=== PATIENT | female | born 1975 | race Caucasian/White ===

== ENCOUNTER 2018-02-26 12:19 | Emergency (ER) | payer MEDICAID | END 2018-02-26 15:38 | disposition home or self-care (01) | LOC: FTE 12:19 | DX: L03.114 Cellulitis of left upper limb (principal); Z79.82 Long term (current) use of aspirin | CPT/HCPCS: 76536; 99284-25 ==

== ENCOUNTER 2018-03-08 10:32 | Inpatient (IN) | payer MEDICAID ==
[2018-03-08 14:39] LABS: ADD MAN DIFF? NO
[2018-03-08 14:41] LABS: WHITE BLOOD COUNT 5.3 10^3/ul (4.8-10.8)
[2018-03-08 14:41] LABS: BASOPHIL # 0.1 10^3/ul (0.0-0.1); BASOPHILS % 0.9 % (0.0-2.0); EOSINOPHILS # 0.2 10^3/ul (0.0-0.5); EOSINOPHILS % 4.3 % (0.0-7.0); HEMATOCRIT 34.8 % (37.0-47.0); HEMOGLOBIN 11.8 g/dl (12.0-16.0); LYMPHOCYTES % 36.9 % (15.0-51.0); MEAN CORPUSCULAR HEMOGLOBIN 30.2 pg (29.0-33.0); MEAN CORPUSCULAR HGB CONC 33.9 g/dl (32.0-37.0); MEAN PLATELET VOLUME 10.7 fl (7.4-10.4); MONOCYTE # 0.5 10^3/ul (0.3-0.9); NEUTROPHIL # 2.6 10^3/ul (1.6-7.5); NEUTROPHILS % 48.5 % (39.0-77.0); PLATELET COUNT 205 10^3/UL (140-415); RED BLOOD COUNT 3.91 10^6/ul (4.20-5.40); RED CELL DISTRIBUTION WIDTH 14.6 % (11.5-14.5)
[2018-03-08 14:57] LABS: LACTIC ACID 1.3 mmol/L (0.5-2.0)
[2018-03-08 14:58] LABS: ALANINE AMINOTRANSFERASE 42 IU/L (13-69); ALBUMIN 4.6 g/dl (3.3-4.9); ALBUMIN/GLOBULIN RATIO 1.58; ALKALINE PHOSPHATASE 60 IU/L (42-121); ANION GAP 16 (8-16); ASPARTATE AMINO TRANSFERASE 28 IU/L (15-46); BILIRUBIN,INDIRECT 0.6 mg/dl (0-1.1); BILIRUBIN,TOTAL 0.6 mg/dl (0.2-1.3); BLOOD UREA NITROGEN 19 mg/dl (7-20); CALCIUM 9.4 mg/dl (8.4-10.2); CARBON DIOXIDE 25 mmol/L (21-31); CHLORIDE 110 mmol/L (97-110); CREATININE 1.37 mg/dl (0.44-1.00); GLUCOSE 99 mg/dl (70-220); POTASSIUM 3.4 mmol/L (3.5-5.1); SODIUM 148 mmol/L (135-144); TOTAL PROTEIN 7.5 g/dl (6.1-8.1)
[2018-03-08 15:11] LABS: INR 0.84; PROTIME 11.6 Sec (11.9-14.9); PT RATIO 0.9
[2018-03-08 15:12] LABS: PARTIAL THROMBOPLASTIN TIME 24.5 Sec (25.0-35.0)
[2018-03-08] MEDS ORDERED: NA PHOSPHATE/BIPHOS 133 ML ENEMA PR (15:30)
[2018-03-08] MEDS ORDERED: LORAZEPAM 0.5 MG TAB PO (15:30)
[2018-03-08] MEDS: PIPER-TAZO 3.375 GM IV (PMX) 100 ML IVPB (15:30)
[2018-03-08] MEDS ORDERED: ALBUTEROL/IPRATROPIUM (NEB) 3 ML AMP HHN (15:30)
[2018-03-08] MEDS ORDERED: NACL 0.9% 3 ML SYG IV (15:30)
[2018-03-08] MEDS ORDERED: DOCUSATE SODIUM 100 MG CAP PO (15:30)
[2018-03-08] MEDS ORDERED: hydrALAzine 20 MG INJ IV (15:30)
[2018-03-08] MEDS ORDERED: NITROGLYCERIN (SL) 0.4 MG TAB SL (15:30)
[2018-03-08] MEDS ORDERED: MAGNESIUM HYDROXIDE 30ML CUP PO (15:30)
[2018-03-08 15:32] LABS: ADD UMIC YES; UR ASCORBIC ACID NEGATIVE (NEGATIVE); UR BILIRUBIN (Dip) NEGATIVE (NEGATIVE); UR BLOOD (Dip) 1+ mg/dL (NEGATIVE); UR CLARITY CLEAR (CLEAR); UR COLOR STRAW (YELLOW); UR GLUCOSE (Dip) NEGATIVE (NEGATIVE); UR KETONES (Dip) NEGATIVE (NEGATIVE); UR LEUKOCYTE ESTERASE (Dip) NEGATIVE Leu/ul (NEGATIVE); UR NITRITE (Dip) NEGATIVE (NEGATIVE); UR RBC 1 /HPF (0-5); UR SPECIFIC GRAVITY (Dip) 1.011 (1.003-1.030); UR TOTAL PROTEIN (Dip) 1+ mg/dl (NEGATIVE); UR UROBILINOGEN (Dip) NEGATIVE (NEGATIVE); UR WBC 3 /HPF (0-5)
[2018-03-08 17:00] LABS: LACTIC ACID 1.1 mmol/L (0.5-2.0)
[2018-03-08] MEDS ORDERED: GLUCOSE GEL 15 GRAM TUBE BUCCAL (17:00)
[2018-03-08] MEDS ORDERED: GLUCOSE GEL 15 GRAM TUBE PO ×2 (17:00)
[2018-03-08] MEDS ORDERED: DEXTROSE 50% 50 ML SYRINGE IV ×2 (17:00)
[2018-03-08] MEDS ORDERED: GLUCAGON 1 MG INJ IM (17:00)
[2018-03-08] MEDS: INSULIN ASPART [NOVOLOG] 3 ML PEN SC ×2 (17:00→21:00)
[2018-03-08 17:24] LABS: FREE T4 (FREE THYROXINE) 0.93 ng/dl (0.64-1.79)
[2018-03-08] MEDS: HYDROCODONE/APAP (5/325) TAB PO ×2 (17:31→23:58)
[2018-03-08 19:09] LABS: LACTIC ACID 1.6 mmol/L (0.5-2.0)
[2018-03-08] MEDS ORDERED: PIPER-TAZO 3.375 GM IV (PMX) 100 ML IVPB (20:00)
[2018-03-08] MEDS: HEPARIN 5,000 UNIT/0.5 ML VIAL SC (21:49)
[2018-03-08] MEDS: CLINDAMYCIN 900 MG/D5W (PMX) 50 ML IVPB (22:08)
[2018-03-09] MEDS: morphine 2 MG INJ IV ×5 (01:44→21:28)
[2018-03-09] MEDS: ACCU-CHEK XX (02:00)
[2018-03-09] MEDS: PANTOPRAZOLE (EC) 40 MG TAB PO (05:33)
[2018-03-09 06:29] LABS: ADD MAN DIFF? NO
[2018-03-09 06:42] LABS: BASOPHILS % 0.7 % (0.0-2.0); EOSINOPHILS # 0.3 10^3/ul (0.0-0.5); EOSINOPHILS % 7.6 % (0.0-7.0); HEMATOCRIT 33.1 % (37.0-47.0); HEMOGLOBIN 11.1 g/dl (12.0-16.0); LYMPHOCYTES % 45.4 % (15.0-51.0); MEAN CORPUSCULAR HEMOGLOBIN 29.9 pg (29.0-33.0); MEAN CORPUSCULAR HGB CONC 33.5 g/dl (32.0-37.0); MEAN CORPUSCULAR VOLUME 89.2 fl (82.0-101.0); MEAN PLATELET VOLUME 11.4 fl (7.4-10.4); MONOCYTE # 0.4 10^3/ul (0.3-0.9); MONOCYTES % 8.3 % (0.0-11.0); NEUTROPHIL # 1.6 10^3/ul (1.6-7.5); NEUTROPHILS % 37.5 % (39.0-77.0); PLATELET COUNT 178 10^3/UL (140-415); RED BLOOD COUNT 3.71 10^6/ul (4.20-5.40); RED CELL DISTRIBUTION WIDTH 14.7 % (11.5-14.5)
[2018-03-09 06:42] LABS: WHITE BLOOD COUNT 4.3 10^3/ul (4.8-10.8)
[2018-03-09 06:50] LABS: HEMOGLOBIN A1C 5.8 % (0-5.9)
[2018-03-09 06:53] LABS: LDL CHOLESTEROL,CALCULATED 78 mg/dl
[2018-03-09 06:54] LABS: ANION GAP 12 (8-16); BLOOD UREA NITROGEN 18 mg/dl (7-20); CALCIUM 8.8 mg/dl (8.4-10.2); CARBON DIOXIDE 24 mmol/L (21-31); CHLORIDE 112 mmol/L (97-110); CREATININE 1.32 mg/dl (0.44-1.00); GLUCOSE 93 mg/dl (70-220); MAGNESIUM 1.9 mg/dl (1.7-2.5); PHOSPHORUS 3.7 mg/dl (2.5-4.9); POTASSIUM 3.6 mmol/L (3.5-5.1); SODIUM 144 mmol/L (135-144)
[2018-03-09 07:02] LABS: CHOLESTEROL 207 mg/dl (100-200)
[2018-03-09 07:02] LABS: HDL CHOLESTEROL 51 mg/dl (34-88); TRIGLYCERIDES 389 mg/dl (0-149)
[2018-03-09] MEDS: INSULIN ASPART [NOVOLOG] 3 ML PEN SC ×4 (08:00→21:00)
[2018-03-09] MEDS: HEPARIN 5,000 UNIT/0.5 ML VIAL SC ×2 (08:35→20:40)
[2018-03-09] MEDS: DAPTOMYCIN 360 MG in SOD CHLORIDE 0.9% 100 ML IVPB (16:28)
[2018-03-10] MEDS: ACCU-CHEK XX ×2 (02:00→20:21)
[2018-03-10] MEDS: morphine 2 MG INJ IV ×4 (02:03→18:10)
[2018-03-10] MEDS: ONDANSETRON 4 MG INJ IV ×4 (02:05→23:37)
[2018-03-10] MEDS: PANTOPRAZOLE (EC) 40 MG TAB PO (05:26)
[2018-03-10] MEDS: INSULIN ASPART [NOVOLOG] 3 ML PEN SC ×4 (08:00→20:09)
[2018-03-10] MEDS: HEPARIN 5,000 UNIT/0.5 ML VIAL SC ×2 (08:37→20:11)
[2018-03-10 08:54] LABS: ADD MAN DIFF? NO
[2018-03-10 08:59] LABS: WHITE BLOOD COUNT 5.4 10^3/ul (4.8-10.8)
[2018-03-10 08:59] LABS: BASOPHILS % 0.7 % (0.0-2.0); EOSINOPHILS # 0.2 10^3/ul (0.0-0.5); EOSINOPHILS % 4.4 % (0.0-7.0); HEMATOCRIT 35.8 % (37.0-47.0); HEMOGLOBIN 11.9 g/dl (12.0-16.0); LYMPHOCYTES # 1.8 10^3/ul (0.8-2.9); MEAN CORPUSCULAR HEMOGLOBIN 29.7 pg (29.0-33.0); MEAN CORPUSCULAR HGB CONC 33.2 g/dl (32.0-37.0); MEAN CORPUSCULAR VOLUME 89.3 fl (82.0-101.0); MEAN PLATELET VOLUME 11.3 fl (7.4-10.4); MONOCYTE # 0.4 10^3/ul (0.3-0.9); MONOCYTES % 7.4 % (0.0-11.0); NEUTROPHILS % 54.3 % (39.0-77.0); PLATELET COUNT 174 10^3/UL (140-415); RED BLOOD COUNT 4.01 10^6/ul (4.20-5.40); RED CELL DISTRIBUTION WIDTH 14.4 % (11.5-14.5)
[2018-03-10 09:23] LABS: ANION GAP 15 (8-16); BLOOD UREA NITROGEN 19 mg/dl (7-20); CALCIUM 8.7 mg/dl (8.4-10.2); CARBON DIOXIDE 25 mmol/L (21-31); CHLORIDE 108 mmol/L (97-110); CREATININE 1.37 mg/dl (0.44-1.00); GLUCOSE 105 mg/dl (70-220); POTASSIUM 3.5 mmol/L (3.5-5.1); SODIUM 144 mmol/L (135-144)
[2018-03-10 09:23] LABS: CREATINE KINASE 156 IU/L (23-200)
[2018-03-10] MEDS: HYDROCODONE/APAP (5/325) TAB PO ×2 (11:08→20:16)
[2018-03-10] MEDS: DAPTOMYCIN 360 MG in SOD CHLORIDE 0.9% 100 ML IVPB (14:07)
[2018-03-10] MEDS: LEVOFLOXACIN 250 MG TAB PO (17:11)
[2018-03-11 05:39] LABS: ADD MAN DIFF? NO
[2018-03-11 05:42] LABS: WHITE BLOOD COUNT 5.1 10^3/ul (4.8-10.8)
[2018-03-11 05:42] LABS: BASOPHILS % 0.6 % (0.0-2.0); EOSINOPHILS # 0.2 10^3/ul (0.0-0.5); EOSINOPHILS % 3.7 % (0.0-7.0); HEMOGLOBIN 11.7 g/dl (12.0-16.0); LYMPHOCYTES # 1.8 10^3/ul (0.8-2.9); LYMPHOCYTES % 35.5 % (15.0-51.0); MEAN CORPUSCULAR HEMOGLOBIN 29.8 pg (29.0-33.0); MEAN CORPUSCULAR HGB CONC 33.4 g/dl (32.0-37.0); MEAN CORPUSCULAR VOLUME 89.3 fl (82.0-101.0); MEAN PLATELET VOLUME 11.2 fl (7.4-10.4); MONOCYTE # 0.4 10^3/ul (0.3-0.9); MONOCYTES % 7.4 % (0.0-11.0); NEUTROPHIL # 2.7 10^3/ul (1.6-7.5); NEUTROPHILS % 52.6 % (39.0-77.0); PLATELET COUNT 174 10^3/UL (140-415); RED BLOOD COUNT 3.92 10^6/ul (4.20-5.40); RED CELL DISTRIBUTION WIDTH 14.1 % (11.5-14.5)
[2018-03-11 06:00] LABS: ANION GAP 17 (8-16); BLOOD UREA NITROGEN 22 mg/dl (7-20); CALCIUM 8.9 mg/dl (8.4-10.2); CARBON DIOXIDE 22 mmol/L (21-31); CHLORIDE 109 mmol/L (97-110); CREATININE 1.31 mg/dl (0.44-1.00); GLUCOSE 102 mg/dl (70-220); POTASSIUM 3.5 mmol/L (3.5-5.1); SODIUM 144 mmol/L (135-144)
[2018-03-11] MEDS: PANTOPRAZOLE (EC) 40 MG TAB PO (06:08)
[2018-03-11] MEDS: INSULIN ASPART [NOVOLOG] 3 ML PEN SC ×4 (08:00→20:28)
[2018-03-11] MEDS: HEPARIN 5,000 UNIT/0.5 ML VIAL SC ×2 (08:35→20:27)
[2018-03-11] MEDS: DAPTOMYCIN 360 MG in SOD CHLORIDE 0.9% 100 ML IVPB (16:12)
[2018-03-11] MEDS: ACCU-CHEK XX (20:37)
[2018-03-12] MEDS: PANTOPRAZOLE (EC) 40 MG TAB PO (06:11)
[2018-03-12 06:18] LABS: ADD MAN DIFF? NO
[2018-03-12 06:23] LABS: WHITE BLOOD COUNT 5.4 10^3/ul (4.8-10.8)
[2018-03-12 06:23] LABS: BASOPHILS % 0.6 % (0.0-2.0); EOSINOPHILS # 0.2 10^3/ul (0.0-0.5); EOSINOPHILS % 3.9 % (0.0-7.0); HEMATOCRIT 35.4 % (37.0-47.0); HEMOGLOBIN 11.9 g/dl (12.0-16.0); LYMPHOCYTES # 1.8 10^3/ul (0.8-2.9); MEAN CORPUSCULAR HEMOGLOBIN 30.2 pg (29.0-33.0); MEAN CORPUSCULAR HGB CONC 33.6 g/dl (32.0-37.0); MEAN CORPUSCULAR VOLUME 89.8 fl (82.0-101.0); MEAN PLATELET VOLUME 11.1 fl (7.4-10.4); MONOCYTE # 0.4 10^3/ul (0.3-0.9); MONOCYTES % 7.3 % (0.0-11.0); NEUTROPHIL # 2.9 10^3/ul (1.6-7.5); NEUTROPHILS % 53.8 % (39.0-77.0); PLATELET COUNT 168 10^3/UL (140-415); RED BLOOD COUNT 3.94 10^6/ul (4.20-5.40); RED CELL DISTRIBUTION WIDTH 14.4 % (11.5-14.5)
[2018-03-12 06:47] LABS: ANION GAP 17 (8-16); BLOOD UREA NITROGEN 22 mg/dl (7-20); CALCIUM 9.4 mg/dl (8.4-10.2); CARBON DIOXIDE 22 mmol/L (21-31); CHLORIDE 111 mmol/L (97-110); CREATININE 1.39 mg/dl (0.44-1.00); GLUCOSE 108 mg/dl (70-220); POTASSIUM 3.6 mmol/L (3.5-5.1); SODIUM 146 mmol/L (135-144)
[2018-03-12] MEDS: INSULIN ASPART [NOVOLOG] 3 ML PEN SC ×2 (08:00→12:00)
[2018-03-12] MEDS: HEPARIN 5,000 UNIT/0.5 ML VIAL SC (09:21)
[2018-03-12] MEDS: DAPTOMYCIN 360 MG in SOD CHLORIDE 0.9% 100 ML IVPB (14:25)
[2018-03-12] MEDS: ACETAMINOPHEN 325 MG TAB PO (14:30)
[2018-03-12] MEDS: LEVOFLOXACIN 250 MG TAB PO (15:03)
== END 2018-03-12 16:22 | disposition home or self-care (01) | DRG 314 ==
LOC: PP2 03-10 18:50 → E/R 10:32 → MS3 15:17 → PP2 21:03
DX: T82.7XXA Infection and inflammatory reaction due to other cardiac and vascular devices, implants and grafts, initial encounter (principal); N18.6 End stage renal disease; L03.114 Cellulitis of left upper limb; C90.00 Multiple myeloma not having achieved remission; N39.0 Urinary tract infection, site not specified; I12.0 Hypertensive chronic kidney disease with stage 5 chronic kidney disease or end stage renal disease; E11.22 Type 2 diabetes mellitus with diabetic chronic kidney disease; E87.5 Hyperkalemia; E87.6 Hypokalemia; D63.8 Anemia in other chronic diseases classified elsewhere; B95.1 Streptococcus, group B, as the cause of diseases classified elsewhere; E66.9 Obesity, unspecified; Y84.8 Other medical procedures as the cause of abnormal reaction of the patient, or of later complication, without mention of misadventure at the time of the procedure; Y92.019 Unspecified place in single-family (private) house as the place of occurrence of the external cause; Z68.36 Body mass index [BMI] 36.0-36.9, adult; Z79.4 Long term (current) use of insulin; Z99.2 Dependence on renal dialysis
CPT/HCPCS: 36415; 71045; 73200; 80048; 80053; 80061; 81001; 82550; 82962; 83036; 83605; 83735; 84100; 84439; 84443; 85025; 85610; 85730; 87040; 87086; 93005; 93931; 96374; 99285-25

== ENCOUNTER 2018-05-15 16:00 | Emergency (ER) | payer MEDICAID ==
[2018-05-15 16:49] LABS: ADD MAN DIFF? NO
[2018-05-15] MEDS: ONDANSETRON 4 MG INJ IV ×2 (16:50→18:32)
[2018-05-15] MEDS: SOD CHLORIDE 0.9% 1,000 ML IV (16:51)
[2018-05-15] MEDS: HYDROmorphONE 1 MG/ML SYG IV (16:51)
[2018-05-15 16:52] LABS: BASOPHILS % 0.2 % (0.0-2.0); EOSINOPHILS % 0.4 % (0.0-7.0); HEMATOCRIT 33.6 % (37.0-47.0); HEMOGLOBIN 11.4 g/dl (12.0-16.0); LYMPHOCYTES # 1.3 10^3/ul (0.8-2.9); LYMPHOCYTES % 26.4 % (15.0-51.0); MEAN CORPUSCULAR HEMOGLOBIN 30.8 pg (29.0-33.0); MEAN CORPUSCULAR HGB CONC 33.9 g/dl (32.0-37.0); MEAN CORPUSCULAR VOLUME 90.8 fl (82.0-101.0); MEAN PLATELET VOLUME 11.1 fl (7.4-10.4); MONOCYTE # 0.4 10^3/ul (0.3-0.9); MONOCYTES % 8.1 % (0.0-11.0); NEUTROPHIL # 3.2 10^3/ul (1.6-7.5); NEUTROPHILS % 64.7 % (39.0-77.0); PLATELET COUNT 152 10^3/UL (140-415); RED CELL DISTRIBUTION WIDTH 14.3 % (11.5-14.5)
[2018-05-15 16:52] LABS: WHITE BLOOD COUNT 4.9 10^3/ul (4.8-10.8)
[2018-05-15 17:15] LABS: ALANINE AMINOTRANSFERASE 73 IU/L (13-69); ALBUMIN 4.5 g/dl (3.3-4.9); ALKALINE PHOSPHATASE 95 IU/L (42-121); ANION GAP 13 (8-16); ASPARTATE AMINO TRANSFERASE 49 IU/L (15-46); BILIRUBIN,INDIRECT 1.1 mg/dl (0-1.1); BILIRUBIN,TOTAL 1.1 mg/dl (0.2-1.3); BLOOD UREA NITROGEN 22 mg/dl (7-20); CALCIUM 8.8 mg/dl (8.4-10.2); CARBON DIOXIDE 24 mmol/L (21-31); CHLORIDE 107 mmol/L (97-110); CREATININE 2.11 mg/dl (0.44-1.00); GLUCOSE 180 mg/dl (70-220); LIPASE 110 U/L (23-300); POTASSIUM 3.8 mmol/L (3.5-5.1); SODIUM 140 mmol/L (135-144); TOTAL PROTEIN 7.3 g/dl (6.1-8.1)
[2018-05-15 17:17] LABS: ADD UMIC YES; UR ASCORBIC ACID NEGATIVE (NEGATIVE); UR BACTERIA FEW /HPF (NONE SEEN); UR BILIRUBIN (Dip) NEGATIVE (NEGATIVE); UR BLOOD (Dip) 1+ mg/dL (NEGATIVE); UR CLARITY CLOUDY (CLEAR); UR COLOR YELLOW (YELLOW); UR GLUCOSE (Dip) NEGATIVE (NEGATIVE); UR HYALINE CAST FEW /HPF (NONE SEEN); UR KETONES (Dip) NEGATIVE (NEGATIVE); UR LEUKOCYTE ESTERASE (Dip) 1+ Leu/ul (NEGATIVE); UR MUCUS FEW /HPF (NONE SEEN); UR NITRITE (Dip) NEGATIVE (NEGATIVE); UR NONSQUAMOUS EPITHELIAL CELL 1 /HPF (NONE SEEN); UR RBC 3 /HPF (0-5); UR SPECIFIC GRAVITY (Dip) 1.017 (1.003-1.030); UR SQUAMOUS EPITHELIAL CELL MANY /HPF (FEW); UR TOTAL PROTEIN (Dip) 2+ mg/dl (NEGATIVE); UR UROBILINOGEN (Dip) NEGATIVE (NEGATIVE); UR WBC 13 /HPF (0-5)
[2018-05-15 17:32] LABS: TROPONIN-I < 0.012 ng/ml (0.000-0.120)
[2018-05-15] MEDS: CEFTRIAXONE 1 GM/50 ML (PMX) 50 ML IVPB (18:32)
== END 2018-05-15 20:22 | disposition home or self-care (01) ==
LOC: E/R 16:00
DX: C41.9 Malignant neoplasm of bone and articular cartilage, unspecified (principal); N39.0 Urinary tract infection, site not specified; I10 Essential (primary) hypertension
CPT/HCPCS: 36415; 71045; 80053; 81001; 83690; 84484; 85025; 93005; 96374; 96375; 96376; 99285-25

== ENCOUNTER 2019-03-20 20:40 | Emergency (ER) | payer MEDICAID ==
[2019-03-21] MEDS: CEFTRIAXONE 1 GM INJ IM (00:14)
[2019-03-21] MEDS: HYDROCODONE/APAP (5/325) TAB PO (00:20)
[2019-03-21] MEDS: ONDANSETRON (ODT) 4 MG TAB ODT (00:50)
== END 2019-03-21 01:09 | disposition home or self-care (01) ==
LOC: FTE 03-21 01:09
DX: L03.114 Cellulitis of left upper limb (principal); I10 Essential (primary) hypertension; T82.898A Other specified complication of vascular prosthetic devices, implants and grafts, initial encounter; Y71.2 Prosthetic and other implants, materials and accessory cardiovascular devices associated with adverse incidents; Z85.830 Personal history of malignant neoplasm of bone
CPT/HCPCS: 93931; 96372; 99285-25

== ENCOUNTER 2019-04-09 14:43 | Emergency (ER) | payer MEDICAID ==
[2019-04-09] MEDS ORDERED: KETOROLAC 60 MG INJ IM (16:43)
[2019-04-09] MEDS: KETOROLAC 30 MG INJ IM (17:24)
[2019-04-09] MEDS: CYCLOBENZAPRINE 10 MG TAB PO (17:25)
[2019-04-09] MEDS: HYDROCODONE/APAP (5/325) TAB PO (17:26)
[2019-04-09] MEDS: DEXAMETHASONE 10 MG/ML 1 ML INJ IM (17:26)
[2019-04-09] MEDS: ACETAMINOPHEN 500 MG TAB PO (18:59)
== END 2019-04-09 20:21 | disposition home or self-care (01) ==
LOC: FTE 14:43
DX: M54.31 Sciatica, right side (principal); I10 Essential (primary) hypertension; E11.9 Type 2 diabetes mellitus without complications; Z85.9 Personal history of malignant neoplasm, unspecified
CPT/HCPCS: 81025; 96372; 99284-25